=== PATIENT | female | born 1985 | race Asian ===

== ENCOUNTER 2025-06-24 15:29 | Outpatient (REF) | payer OTHER, SELFPAY ==
--- OUTSIDE RECORDS SUMMARY | 2025-06-24 14:45 | XMS_ITS | Encounter Summary ---
Author Organization [employer] Address [address] [place] [address] Care Team Providers Care Caltrans Equipment Operator Name Role Phone Unavailable Primary Care Provider Unavailabl e Reason for Referral * Consultation (Routine) - Pending Review Specialty Diagnoses / Procedures Referred By Giuseppe soto Referred To Contact Genetics Diagnoses Family history of breast cancer Demar Brown MD [address] [place] [phone] Phone: tel: fax: Referral ID Status Reason Start Date Expiration Date Visits Requested Visits Authorized [id number] Pending Review Specialty Services Required 5 06/24/2026 1 1 * Consultation (Routine) - Pending Review Specialty Diagnoses / Procedures Referred By Giuseppe soto Referred To Contact Obstetrics Diagnoses Infertility counseling Demar Brown MD [address] [place] [phone] Phone: tel: fax: Referral ID Status Reason Start Date Expiration Date Visits Requested Visits Authorized [id number] Pending Review Specialty Services Required 5 06/24/2026 1 1 Encounter Details Date Type Department Care Team ([facility] st Contact Info) Description 06/24/2025 2:45 PM EST Office Visit [facility] MED & PEDS [address], [place] [id number] Demar Brown MD [address] [place] [address] [phone] Family history of breast cancer (Primary Dx); Dietary counseling; Exercise counseling; Overweight; Vaginal bleeding problems; Infertility counseling Social History Tobacco Use Types Packs/Day Years Used Date Smoking Tobacco: Never Smokeless Tobacco: Never Tobacco Cessation:Counseling Given: No Housing Stability Answer Date Recorded What is your housing situation today? I have marzena saleh 06/17/[address] you li ve. Do you have problems with any of the following? None of the above 06/17/2025 Food Insecurity Answer Date Recorded Within the past 12 months, y ou worried that your food would run out before you got money to buy more: Never True 06/17/2025 Within the past 12 months,th e food you bought just didn't last and you didn't have enough money to get more: Never True Transportation Answer Date Recorded In the past 12 months, has l ack of transportation kept you from medical appts, meetings, work or from getting things needed for daily living? No 06/17/2025 Utilities Answer Date Recorded In the past 12 months, has t he electric, gas, oil or water [email or web address] threatened to shut off services in your home? No 06/17/2025 Internet Access Answer Date Recorded Internet Access Q1 Yes 06/17/2025 Internet Access Q2 Not on file 06/17/2025 Comments Unknown Sex and Gender Information Value Date Recorded Sex Assigned at Female 06/21/2025 1:21 PM EST Legal Sex Female 12:00 PM EDT Gender Identity Female 06/21/2025 1:21 PM EST Sexual Orientation Straight 06/21/2025 1: 21 PM EST documented as of this encounter Last Filed Vital Signs Vital Sign Reading Time Taken Comments Blood Pressure 130/83 06/24/2025 2:37 PM EST Pulse 89 06/24/2025 2:37 PM EST Temperature 36.6 C (97.8 F) 06/24/2025 2:37 PM EST Respiratory Rate 20 06/24/2025 2:37 PM EST Oxygen Saturation 99% 06/24/2025 2:37 PM EST Inhaled Oxygen Concentration - - Weight 82.1 kg (181 lb) 06/24/2025 2:37 PM EST Height 169.5 cm (5' 6.73 ) 06/24/2025 2:37 PM ES T Body Mass Index 28.58 06/24/2025 2:37 PM EST documented in this encounter Progress Notes * Demar Brown MD - 06/24/2025 2:45 PM EST SUBJECTIVE Tamy Plata is a 40 y.o. female who presents for No chief complaint on file.. HPI Here to establish care Concerned about infertility. Has been w/ the same partner x 2 years. Never got . A0. No w/ previous partners. H/o Herpes. Treated at an STD clinic HIV neg. Done recently. Records not available. H/o spotting x 1 week. LMP ~ 11-10 Problem List[1] Allergies[2] Medications Ordered Prior to Encounter[3] Review of Systems Constitutional: Negative for activity change, appetite change, chills, diaphoresis and fatigue. HENT: Negative for dental problem, drooling, ear discharge, ear pain and hearing loss. Eyes: Negative for pain, discharge and itching. Respiratory: Negative for cough, choking and chest tightness. Cardiovascular: Negative for chest pain and leg swelling. Gastrointestinal: Negative for blood in stool and diarrhea. Genitourinary: Negative for difficulty urinating, dyspareunia, dysuria, enuresis, flank pain, frequency and genital sores. Musculoskeletal: Negative for arthralgias, gait problem and joint swelling. Skin: Negative for pallor. Neurological: Negative for dizziness, seizures, speech difficulty, light- headedness and numbness. Psychiatric/Behavioral: Negative for behavioral problems, confusion and decreased concentration. OBJECTIVE Vitals: 06/24/25 1437 BP: 130/83 BP Location: Left arm Patient Position: Sitting BP Cuff Size: Adult long Pulse: 89 Resp: 20 Temp: 97.8 ??F (36.6 ??C) TempSrc: Oral SpO2: 99% Weight: 181 lb (82.1 kg) Height: 5' 6.73 (1.695 m) Physical Exam Constitutional: General: She is not in acute distress. Appearance: Normal appearance. She is not ill-appearing, toxic-appearing or diaphoretic. HENT: Head: Normocephalic. Cardiovascular: Rate and Rhythm: Normal rate. Pulmonary: Effort: Pulmonary effort is normal. Abdominal: General: Abdomen is flat. Musculoskeletal: General: Normal range of motion. Neurological: General: No focal deficit present. Mental Status: She is alert. Psychiatric: Mood and Affect: Mood normal. Assessment/Plan Assessment/Plan Diagnoses and all orders for this visit: Family history of breast cancer - Referral to Genetics; Future Dietary counseling Exercise counseling Overweight Dietary Recommendations: Fruits, vegetables, whole grains, protein foods, and fat-free or low-fat dairy products are healthychoices. Eat different types of protein foods in your diet. This can include seafood, lean meats, poultry, beans, peas, lentils, nuts, seeds, soy products, and eggs. Limit foods and beverages higher in added sugars, saturated fat, and sodium. Exercise Recommendations: At least 150 minutes of moderate-intensity physical activity per week, or an equivalent combinationof moderate- and vigorous-intensity activity Vaginal bleeding problems Comments: Biomedical Engineer exam w/ Dr Rosario in 4 days. Orders: - CBC auto differential; Future - Comprehensive Metabolic Panel; Future - Lipid Panel, Standard; Future - TSH with Reflex to Free T4; Future - Urinalysis, Complete, with Reflex to Culture; Future Infertility counseling - Referral to Infertility; Future [1] There is no problem list on file for this patient. [2] Not on File [3] No current outpatient medications on file prior to visit. No current facility-administered medications on file prior to visit. documented in this encounter Plan of Treatment Upcoming Encounters Date Type Department Care Team (Late st Contact Info) Description 06/28/2025 9:20 AM EST Procedure Visit [facility] [address] [place] [address] Maryjane Rosario MD [address] [place] [address] Scheduled Orders Name Type Priority Associated Diagnoses Orde r Schedule CBC auto differential Lab Routine Vaginal bleeding problems Expected: 06/24/2025 (Approximate), Expires: 06/24/2026 Comprehensive Metabolic Panel Lab Routine Vaginal bleeding problems Expected: 06/24/2025 (Approximate), Expires: 06/24/2026 Lipid Panel, Standard Lab Routine Vaginal bleeding problems Expected: 06/24/2025 (Approximate), Expires: 06/24/2026 TSH with Reflex to Free T4 Lab Routine Vaginal bleeding problems Expected: 06/24/2025 (Approximate), Expires: 06/24/2026 Urinalysis, Complete, with Reflex to Culture Lab Routine Vaginal bleeding problems Expected: 06/24/2025 (Approximate), Expires: 06/24/2026 Scheduled Referrals Name Type Priority Associated Diagnoses Order Schedule Referral to Infertility Outpatient Referral Routine Infertility counseling Expected: 06/24/2025 (Approximate), Expires: 06/24/2026 Referral to Genetics Outpatient Referral Routine Family history of breast cancer Expected: 06/24/2025 (Approximate), Expires: 06/24/2026 documented as of this encounter Visit Diagnoses Diagnosis Family history of breast cancer- Primary Family history of malignant neoplasm of breast Dietary counseling Dietary surveillance and counseling Exercise counseling Overweight Vaginal bleeding problems Infertility counseling documented in this encounter
--- OUTSIDE RECORDS SUMMARY | 2025-06-24 15:36 | XMS_ITS | Encounter Summary ---
Author Organization [employer] Address [address] [facility] [address] [place] [address] Care Team Providers Care Corporate Claims Examiner Name Role Phone Unavailable Primary Care Provider Unavailabl e Encounter Details Date Type Department Care Team (Latest Contact Info) Description 06/24/2025 Travel Social History Tobacco Use Types Packs/Day Years Used Date Smoking Tobacco: Never Smokeless Tobacco: Never Housing Stability Answer Date Recorded What is [...] t he electric, gas, oil or water company threatened to shut off services in your [...] PM EST documented as of this encounter Plan of Treatment Upcoming Encounters Date Type Department Care Team ([facility] st Contact Info) Description 06/28/2025 9:20 AM EST Procedure Visit [facility] [address] [place] [address] Maryjane Rosario MD [address] [place] [address] documented as of this encounter Visit Diagnoses Not on filedocumented in this encounter
--- OUTSIDE RECORDS SUMMARY | 2025-06-24 15:36 | XMS_ITS | Clinical Summary ---
Author Organization [employer] Address [address] [facility] [address] [place] [address] Care Team Providers Care Space And Missile Operations Name Role Phone Unavailable Primary Care Provider Unavailabl e Medications No known medications Active Problems No known active problems Encounters Date Type Department Care Team Description 06/24/2025 2:45 PM EST Office Visit [facility] PEDS [address] [place] [address] Demar Brown MD Family history of breast cancer (Primary Dx); Dietary counseling; Exercise counseling; Overweight; Vaginal bleeding problems; Infertility counseling 06/24/2025 Travel 06/17/2025 Patient Outreach [facility] [address] [place] [address] Merrick Albright MD Pre-visit Planning (SDOH screening negative and Tobacco screening negative) 04/26/2025 Telephone [facility] [address] [place] [id number] Merrick Albright MD [facility] - New Patient Assistance from Last 3 Months Family History Medical History Relation Name Comments Hypertrophy of prostate Father Breast cancer Mother Relation Name Status Comments Father Mother Social History Tobacco Use Types Packs/Day Years Used Date Smoking Tobacco: Never Smokeless Tobacco: Never Tobacco Cessation:Counseling Given: No Housing Stability Answer Date Recorded What is your housing situation today? I have marzenaaparna saleh 06/17/[address] you [...] Orientation Straight 06/21/2025 1: 21 PM EST Last Filed Vital Signs Vital Sign Reading [...] Mass Index 28.58 06/24/2025 2:37 PM EST Plan of Treatment Upcoming Encounters Date Type Department Care Team (Late st Contact Info) Description 06/28/2025 9:20 AM EST Procedure Visit [facility] & PED[facility] [address] [place] [address] Maryjane Rosario MD [address] [place] [address] Health Maintenance Due Date Last Done Comments Depression Screening 1987 Disability Screening 1987 Alcohol/Substance Use Screening 1999 Family Planning (PISQ) 2002 HPV Vaccines (1 - 3-dose series) 2002 Hepatitis C Screening 2005 DTaP/Tdap/Td Vaccines (1 - Tdap) 2006 Hepatitis B Vaccines (1 of 3 - 19+ 3-dose series) 2006 Pap Smear 2008 Cervical Cancer Screening 2017 HPV/Cotest 2017 Influenza Vaccine (#1) 2025 SDOH Screening 06/17/2026 06/17/2025 COVID-19 Vaccine (1 - 2024-2 6 season) 2026 Postponed from 04/04 (Patient Refused) HIV Screening 06/24/2026 Postponed from 1987 (Patient Refused) Tobacco Screening 06/24/2026 06/24/2025 Zoster Vaccines (1 of 2) 2037 RSV Patients and Pa tients Aged 60 years or older (1 - 1-dose 75+ series) 2062 HIB Vaccines Aged Out No longer eligi ble based on patient's age to complete this topic Hepatitis A Vaccines Aged Out No long er eligible based on patient's age to complete this topic IPV Vaccines Aged Out No longer eligi ble based on patient's age to complete this topic Meningococcal B Vaccine Aged Out No l onger eligible based on patient's age to complete this topic Meningococcal Vaccine Aged Out No oswaldo luisa eligible based on patient's age to complete this topic Pneumococcal Vaccine: Pediat rics (0 to 5 Years) and At-Risk Patients (6 to 49) Years Aged Out No longer eligi ble based on patient's age to complete this topic RSV under 20 months Aged Out No longe r eligible based on patient's age to complete this topic Rotavirus Vaccines Aged Out No longer eligible based on patient's age to complete this topic Insurance [facility]LY [facility]
[2025-06-24 18:33] LABS: MANUAL DIFF FLAG NO
[2025-06-24 18:39] LABS: Hematocrit 37.8 % (37.0-47.0); Hemoglobin 11.9 g/dl (12.0-16.0); Imm Gran Abs Auto 0.03 X10*3/uL (0.00-0.03); Imm Gran Pct Auto 0.4 % (0.0-0.4); Lymphocytes Absolute Auto 3.5 X10*3/uL (1.2-4.9); Mean Corpuscular HGB Conc 31.5 g/dl (31.0-35.0); Mean Corpuscular Hemoglobin 27.7 pg (27.0-33.0); Mean Corpuscular Volume 87.9 fL (80.0-98.0); NRBC Abs Auto 0.000 X10*3/uL (0.0-0.012); NRBC Pct Auto 0.0 /100WBC (0.0-0.2); Platelet Count 306 X10*3/uL (160-400); Red Blood Count 4.30 X10*6/uL (4.20-5.50); White Blood Count 7.5 X10*3/uL (4.8-10.8)
[2025-06-24 18:44] LABS: Appearance Urine Clear; Glucose Urine UA Negative (Negative); PH 5.5 (5.0-9.0); Specific Gravity - Urine 1.025 (1.005-1.025); UMIC TRIGGER UACC YES
[2025-06-24 19:03] LABS: UACC Culture Trigger YES
[2025-06-24 19:16] LABS: Alanine Aminotransferase 22 U/L (0-31); Albumin Level 4.6 g/dL (3.5-5.0); Alkaline Phosphatase 81 U/L (39-117); Anion Gap 11 (12-20); Aspartate Amino Transferase 19 U/L (5-31); Blood Urea Nitrogen 10 mg/dL (9-16); Calcium 9.4 mg/dL (8.4-10.2); Carbon Dioxide 23 mmol/L (22-29); Chloride 108 mmol/L (96-108); Cholesterol 168 mg/dL (<200); Estimated Glomerular Filt Rate > 60; HDL Cholesterol 33 mg/dL (>40); Potassium 3.8 mmol/L (3.3-5.1); Sodium 138 mmol/L (135-145); Total Protein 8.4 g/dL (6.5-8.0); Triglycerides 277 mg/dL (<150)
== END 2025-06-24 15:30 | disposition home or self-care (01) ==
LOC: HO.CHCLDS 15:29
PROVIDERS: Visit Provider Internal Medicine
DX: N93.9 Abnormal uterine and vaginal bleeding, unspecified (principal)
CPT/HCPCS: 36415; 80053; 80061; 81001; 84443; 85025; 87086

== ENCOUNTER 2025-06-29 05:00 | Outpatient (REF) | payer MEDICAID, SELFPAY ==
[2025-07-01 15:58] LABS: C. trachomatis RNA TMA NOT DETECTED (NOT DETECTED); N. gonorrhoeae RNA TMA NOT DETECTED (NOT DETECTED); Trichomonas (NAAT) DETECTED (NOT DETECTED)
--- OUTSIDE RECORDS SUMMARY | 2025-07-04 15:47 | XMS_ITS | Encounter Summary ---
Author Organization [employer] Address [address] [facility] [address] [place] [address] Care Team Providers Care Research Biostatistician Name Role Phone Demar Brown MD Primary Care Provider [phone] Encounter Details Date Type Department Care Team (Latest Contact Info) Description 06/28/2025 Results Follow-Up [facility] MED & PEDS [address] [place] [address] Clarice Owens RN CBC auto differential, Comprehensive Metabolic Panel, Lipid Panel, Standard, Additional followed-up results: 2 Social History Tobacco Use Types Packs/Day Years Used Date Smoking Tobacco: Never Smokeless Tobacco: Never Housing Stability Answer Date Recorded What is your housing situation today? I have marzena delfino 06/17/[address] you li [...] as of this encounter Plan of Treatment Not on file documented as of this encounter Visit Diagnoses Not on filedocumented in this encounter Care Teams Research Biostatistician Relationship Specialty Start Date End Date Demar Brown MD [address] [place] [phone] PCP - General Internal Medicine 06/28/25 documented as of this encounter
--- OUTSIDE RECORDS SUMMARY | 2025-07-04 15:47 | XMS_ITS | Clinical Summary ---
Author Organization [employer] Address [address] [facility] 7[address] [place] [address] Care Team Providers Care Lithographic Retoucher Apprentice Name Role Phone Demar Brown MD Primary Care Provider [phone] Allergies No known active allergies Medications Multiple Vitamin (multivitamin) tabletIndication s:Normocytic anemia Take 1 tablet by mouth Once per day. 30 tablet 2 06/27/2025 Active metroNIDAZOLE (Flagyl) 500 MG tabletIndication s:Trichomoniasis Take 1 tablet (500 mg) by mouth 2 times daily for 7 days. 14 tablet 07/04/2025 Active Active Problems Problem Noted Date Diagnosed Date Breast mass in female 06/29/2025 Hypertriglyceridemia 06/27/2025 Normocytic anemia 06/27/2025 Encounters Date Type Department Care Team Description 07/04/2025 Results Follow-Up [facility] [address] [place] [address] Maryjane Rosario MD STI testing add on (NG, CT, Trich) 06/28/2025 9:20 AM EST Procedure Visit [facility] [address] [place] [address] Maryjane Rosario MD Cervical cancer screening (Primary Dx); Infertility counseling; Abnormal uterine bleeding (AUB); Breast mass in female 06/28/2025 Results Follow-Up [facility] [address] [place] [address] Clarice Owens RN CBC auto differential, Comprehensive Metabolic Panel, Lipid Panel, Standard, Additional followed-up results: 2 06/28/2025 Travel 06/27/2025 Orders Only [facility] [address] [place] [address] Demar Brown MD Hypertriglyceridemia (Primary Dx); Normocytic anemia 06/24/2025 2:45 PM EST Office Visit [facility] [address] [place] [address] Demar Brown MD Family history of breast cancer (Primary Dx); Dietary counseling; Exercise counseling; Overweight; Vaginal bleeding problems; Infertility counseling 06/24/2025 Orders Only [facility] [address] [place] [address] Demar Brown MD 06/24/2025 Travel 06/17/2025 Patient Outreach [address] [address] Merrick Albright MD Pre-visit Planning (SDOH screening negative and Tobacco screening negative) 04/26/[address] [address] Merrick Albright MD CHW - New Patient [...] t he electric, gas, oil or water [employer] threatened to shut off services in your [...] Sign Reading Time Taken Comments Blood Pressure 126/87 06/28/2025 9:32 AM EST Pulse 82 06/28/2025 9:32 AM EST Temperature 37.1 C (98.7 F) 06/28/2025 9:32 AM EST Respiratory Rate 20 06/28/2025 9:32 AM EST Oxygen Saturation 99% 06/24/2025 2:37 PM EST Inhaled Oxygen Concentration - - Weight 82.9 kg (182 lb 12.8 oz) 06/28/2025 9:32 AM EST Height 167.6 cm (5' 6 ) 06/28/2025 9:32 AM EST Body Mass Index 29.5 06/28/2025 9:32 AM EST Plan of Treatment Health Maintenance Due Date Last Done Comments [...] Postponed from 1987 (Patient Refused) Tobacco Screening 06/28/2026 06/28/2025 Zoster Vaccines (1 of 2) 2037 RSV [...] on patient's age to complete this topic Procedures Procedure Name Priority Date/Time Associated Diagnosis Comments CHLAMYDIA/N. GONORRHOEAE AND T. VAGINALIS RNA, QUAL,TMA Routine 06/28/2025 12:00 AM EST Abnormal uterine bleeding (AUB) CULTURE, URINE, ROUTINE Routine 06/24/2025 7:04 PM EST URINALYSIS, COMPLETE, WITH REFLEX TO CULTURE Routine 06/24/2025 3:38 PM EST Vaginal bleeding problems TSH W/REFLEX TO FT4 Routine 06/24/2025 3 :34 PM EST Vaginal bleeding problems LIPID PANEL, STANDARD Routine 06/24/2025 3:34 PM EST Vaginal bleeding problems COMPREHENSIVE METABOLIC PANEL Routine 06/24/2025 3:34 PM EST Vaginal bleeding problems CBC WITH AUTO DIFFERENTIAL Routine 06/24/2025 3:34 PM EST Vaginal bleeding problems from Last 3 Months Results * (ABNORMAL) STI testing add on (NG, CT, Trich) (06/28/2025 12:00 AM EST) Trichomonas (NAAT) DETECTED(A) NOT DETECTED [facility] Comment:The analytical perfo rmance characteristics of thisassay have been determined by [employer]. Themodifications have not been cleared or approved bythe FDA. This assay has been validated pursuant to theCLIA regulations and is used for clinical purposes.For additional information, please refer tohttp://education.Genbook/faq/Trichomonastma(This link is being provided for information/educational purposes only.)THIS TEST WAS PERFORMED AT:[facility] [place] [phone] KAPOOR MD CTNG Ref Lab NOT DETECTED NOT DETECTED [facility] NG Ref Lab NOT DETECTED NOT DETECTED [facility] ThinPrep vial Cervix uteri structure / Unknown 06/28/2025 06/29/2025 7:29 AM EST [facility] - 07/01/2025 3:58 PM EST Collection Date: [id number] by: LANIE Moore: Cervix us Maryjane Rosario MD LAB CYTOLOGY ORDERABLES Final Result Performing Organization Address [facility]/ZIP Co de Phone Number [facility] [address] [place] [address] [phone] * Culture, Urine, Routine (06/24/2025 7:04 PM EST) Urine Urine specimen obtained by clean catch procedure / Unknown 06/24/2025 7:04 PM EST 06/24/2025 7:04 PM EST Comment:[facility] - 06/26/2025 10:29 AM EST Urine Culture No growth. Specimen Source: Urine clean catch us Demar Brown MD LAB MICROBIOLOGY - GENERAL ORDERABLES Final Result Performing Organization Address [facility]/ZIP Co de Phone Number [facility] [address] [place] [phone] * (ABNORMAL) Urinalysis, Complete, with Reflex to Culture (06/24/2025 3:38 PM EST) Color Urine Yellow [facility] Appearance Urine Clear [facility] PH 5.5 5.0 - 9.0 [facility] Glucose Urine UA Negative Negative mg/dL [facility] Urine Blood Large (3+)(A) Negative [facility] Specific [place] - Urine 1.025 1.005 - 1.025 [facility] Urine Protein Negative Neg-Trace mg/dL [facility] Urine Ketones Negative Negative mg/dL [facility] Nitrite Urine Negative Negative [facility] Leukocyte Esterase Urine Trace(A) Negative [facility] RBC Urine 3-5(A) 0 - 2 /HPF [facility] Urine WBC 11-20(A) 0 - 5 /HPF [facility] Urine Squamous Epithelial Cell 3-5 0 - 2 /HPF [facility] Urine Bacteria Trace None Seen [facility] Hyaline Casts, Urine 0-2 0 - 2 /LPF [facility] Urine 06/24/2025 3:38 PM EST 06/24/2025 6:39 PM EST Narrative [facility] - 06/24/2025 7:04 PM EST [id number], Clean Catch us Demar Brown MD LAB URINE ORDERABLES Final Result [facility] [address] [place] [phone] * TSH with Reflex to Free T4 (06/24/2025 3:34 PM EST) TSH reflex Free T4 0.93 0.32 - 4.0 uIU/mL [facility] Blood Venous blood specimen / Unknown 06/24/2025 3:34 PM EST 06/24/2025 6:29 PM EST us Demar Brown MD LAB BLOOD ORDERABLES Final Result [facility] [address] [place], [place] [phone] * (ABNORMAL) CBC auto differential (06/24/2025 3:34 PM EST) White Blood Count 7.5 4.8 - 10.8 X10*3/uL [facility] Red Blood Count 4.30 4.20 - 5.50 X10*6/uL [facility] Hemoglobin 11.9(L) 12.0 - 16.0 g/dl [facility] Hematocrit 37.8 37.0 - 47.0 % [facility] Mean Corpuscular Volume 87.9 80.0 - 98.0 fL [facility] Mean Corpuscular Hemoglobin 27.7 27.0 - 33.0 pg [facility] Mean Corpuscular HGB Conc 31.5 31.0 - 35.0 g/dl [facility] Red Cell Distribution Width 13.7 11.0 - 16.0 % [facility] Platelet Count 306 160 - 400 X10*3/uL [facility] Mean Platelet Volume 10.8 9.4 - 12.3 fL [facility] Neutrophils Percent Auto 44.2(L) 45 - 73 % [facility] Imm Gran Pct Auto 0.4 0.0 - 0.4 % [facility] Lymphocytes Percent Auto 45.9(H) 20 - 40 % [facility] Monocytes Percent Auto 8.2 2 - 11 % [facility] Eosinophils Percent Auto 0.9 0 - 4 % [facility] Basophils Percent Auto 0.4 0 - 2 % [facility] NRBC Pct Auto 0.0 0.0 - 0.2 /100WBC [facility] Neutrophils Absolute Auto 3.3 2.0 - 8.3 x10*3/uL [facility] Imm Gran Abs Auto 0.03 0.00 - 0.03 X10*3/uL [facility] Lymphocytes Absolute Auto 3.5 1.2 - 4.9 X10*3/uL [facility] Monocytes Absolute Auto 0.6 0.1 - 1.2 X10*3/uL [facility] Eosinophils Absolute Auto 0.1 0.0 - 0.4 X10*3/uL [facility] Basophils Absolute Auto 0.0 0.0 - 0.2 X10*3/uL [facility] NRBC Abs Auto 0.000 0.0 - 0.012 X10*3/uL [facility] Blood Venous blood specimen / Unknown 06/24/2025 3:34 PM EST 06/24/2025 6:29 PM EST us Demar Brown MD LAB BLOOD ORDERABLES Final Result [facility] [address] [place] [phone] * (ABNORMAL) Lipid Panel, Standard (06/24/2025 3:34 PM EST) Triglycerides 277(H) <150 mg/dL [facility] Comment:Slight Lipemia.Aime able Triglyceride: less than 150 mg/dLBorderline High Triglyceride 150-199 mg/dLHigh Triglyceride: 200-499 mg/dLVery High Triglyceride: greater than or equal to 5OO mg/dL Cholesterol 168 <200 mg/dL [facility] Comment:Desirable Cholestero l: less than 200 mg/dLBorderline High Cholesterol: 200-239 mg/dLHigh Cholesterol: greater than 239 mg/dL LDL Cholesterol Calculated 80 <100 mg/dL [facility] Comment:Desirable LDL: less than 100 mg/dLNear Optimal/Above Optimal LDL: 110- 129 mg/dLBorderline High LDL: 130-159 mg/dLHigh LDL: 160-189 mg/dLVery High LDL: greater than or equal to 190 mg/dL HDL Cholesterol 33(L) >40 mg/dL [facility] Comment:Desirable HDL: great er than 40 mg/dL Note: This HDL assay may give artificially low results in patients with liver disease. Blood Venous blood specimen / Unknown 06/24/2025 3:34 PM EST 06/24/2025 6:29 PM EST us Demar Brown MD LAB BLOOD ORDERABLES Final Result [facility] [address] [place] [phone] * (ABNORMAL) Comprehensive Metabolic Panel (06/24/2025 3:34 PM EST) Sodium 138 135 - 145 mmol/L [facility] Potassium 3.8 3.3 - 5.1 mmol/L [facility] Chloride 108 96 - 108 mmol/L [facility] Carbon Dioxide 23 22 - 29 mmol/L [facility] Anion Gap 11(L) 12 - 20 [facility] Urea Nitrogen (BUN) 10 9 - 16 mg/dL [facility] Creatinine, Serum 0.55 0.5 - 1.4 mg/dL [facility] Estimated Glomerular Filt Rate >60 [facility] Comment:Chronic Kidney Disea se: Estimated GFR < 60 mL/min/[id number] Kidney Disease: Estimated GFR < 15 mL/min/1.73m2 Glucose 83 60 - 115 mg/dL [facility] Calcium 9.4 8.4 - 10.2 mg/dL [facility] Bilirubin, Total 0.5 0.0 - 1.0 mg/dL [facility] Aspartate Amino Transferase 19 5 - 31 U/L [facility] Alanine Aminotransferase 22 0 - 31 U/L [facility] Total Protein 8.4(H) 6.5 - 8.0 g/dL [facility] Albumin Level 4.6 3.5 - 5.0 g/dL [facility] Alkaline Phosphatase 81 39 - 117 U/L [facility] Blood Venous blood specimen / Unknown 06/24/2025 3:34 PM EST 06/24/2025 6:29 PM EST us Demar Brown MD LAB BLOOD ORDERABLES Final Result [facility] [address] [place] [address] [phone] from Last 3 Months Insurance [facility] Care Teams Lithographic Retoucher Apprentice Relationship Specialty Start Date End Date Demar Brown MD [address] [place] [phone] PCP - General Internal Medicine 06/28/25
--- OUTSIDE RECORDS SUMMARY | 2025-07-04 15:47 | XMS_ITS | Encounter Summary ---
Author Organization [employer] Address [address] [facility] [address] [place] [address] Care Team Providers Care Bench Grinder Name Role Phone Demar Brown MD Primary Care Provider [phone] Encounter Details Date Type Department Care Team (Latest Contact Info) Description 06/27/2025 Orders Only [facility] [address] [place], [place] [phone] Demar Brown MD [address] [place], [place] [phone] Hypertriglyceridemia (Primary Dx); Normocytic anemia Social History Tobacco Use Types Packs/Day Years [...] as of this encounter Visit Diagnoses Diagnosis Hypertriglyceridemia- Primary Pure hyperglyceridemia Normocytic anemia Unspecified anemia documented in this encounter Care Teams Bench Grinder Relationship Specialty Start Date End Date Demar Brown MD [address] [place] [phone] PCP - General Internal Medicine 06/28/25 documented as of this encounter
--- OUTSIDE RECORDS SUMMARY | 2025-07-04 15:47 | XMS_ITS | Encounter Summary ---
Author Organization [employer] Address [address] [facility] [address] [place] [address] Care Team Providers Care Banana Ripening Room Supervisor Name Role Phone Demar Brown MD Primary Care Provider [phone] Encounter Details Date Type Department Care Team ([facility] st Contact Info) Description 07/04/2025 Results Follow-Up [facility] [address] [place], [place] [phone] Maryjane Rosario MD [address] [place], [place] [phone] STI testing add on (NG, CT, Trich) Social History Tobacco Use Types Packs/Day Years [...] as of this encounter Visit Diagnoses Diagnosis Trichomoniasis- Primary documented in this encounter Care Teams Banana Ripening Room Supervisor Relationship Specialty Start Date End Date Demar Brown MD [address] [place] [phone] PCP - General Internal Medicine 06/28/25 documented as of this encounter
== END 2025-06-29 05:01 | disposition home or self-care (01) ==
LOC: HO.LNP 05:00
PROVIDERS: Visit Provider Family Medicine
DX: Z12.4 Encounter for screening for malignant neoplasm of cervix (principal); N93.9 Abnormal uterine and vaginal bleeding, unspecified; Z20.2 Contact with and (suspected) exposure to infections with a predominantly sexual mode of transmission
CPT/HCPCS: 87491; 87591; 87626; 87661; 88175